=== PATIENT | male | born 1955 | race Caucasian/White ===

== ENCOUNTER 2023-03-03 00:09 | Emergency (ER) | payer MEDICARE ==
[~2023-03-03] VITALS: Ht 182.9 cm; Wt 110.0 kg
[2023-03-03] MEDS ORDERED: LORazepam 2 mg/ml vial IV ONE (01:05)
[2023-03-03] MEDS ORDERED: ketorolac tromethamine 15mg/ml inj. IV ONE (01:05)
[2023-03-03] MEDS ORDERED: morphine 2 MG/ML inj. syringe IV PRN (01:05)
[2023-03-03] MEDS ORDERED: pantoprazole 40 MG vial IV ONE (01:05)
[2023-03-03] MEDS ORDERED: pantoprazole 40MG/NS 100ML BAG 100 ML IV ONE (01:10)
[2023-03-03 01:14] LABS: BASOPHILS % (AUTO) 0.3 % (0-1); EOSINOPHILS # (AUTO) 0.1 X10'3 (0-0.9); EOSINOPHILS % (AUTO) 0.7 % (0-6); HEMOGLOBIN 13.6 g/dl (14.0-17.9); LYMPHOCYTES # (AUTO) 2.1 X10'3 (1.1-4.8); LYMPHOCYTES % (AUTO) 11.8 % (21-51); MEAN CORPUSCULAR HEMOGLOBIN 30.3 PG (27.0-31.0); MEAN PLATELET VOLUME 8.8 FL (7.4-10.4); MONOCYTES # (AUTO) 1.9 X10'3 (0-0.9); MONOCYTES % (AUTO) 10.3 % (2-12); NEUTROPHILS % (AUTO) 76.9 % (42-75); PLATELET COUNT 322 X10'3 (140-440); RED BLOOD COUNT 4.49 X10'6 (4.70-6.10); RED CELL DISTRIBUTION WIDTH 13.6 % (11.5-14.5); WHITE BLOOD COUNT 18.2 X10'3 (4.5-11.0)
[2023-03-03 01:24] LABS: D-DIMER 5.29 MG/L FEU (0-0.50)
[2023-03-03 01:24] LABS: ALANINE AMINOTRANSFERASE 57 U/L (12-78); ALBUMIN/GLOBULIN RATIO 1.2 (1.1-1.5); ALKALINE PHOSPHATASE 154 IU/L (46-116); ANION GAP 8 (8-16); ASPARTATE AMINO TRANSFERASE 28 U/L (10-37); BILIRUBIN,TOTAL 0.8 MG/DL (0.1-1.0); BLOOD UREA NITROGEN 21 MG/DL (7-18); BUN/CREATININE RATIO 19.3 (10.0-20.0); CALCIUM 8.7 MG/DL (8.5-10.1); CHLORIDE 101 MMOL/L (99-107); CREATININE 1.09 MG/DL (0.60-1.10); GLUCOSE 156 MG/DL (70-104); POTASSIUM 4.3 MMOL/L (3.5-5.1); SODIUM 135 MMOL/L (135-145); TOTAL CARBON DIOXIDE 25.8 MMOL/L (24-32); TOTAL PROTEIN 7.4 G/DL (6.4-8.2); eGFR 67 ML/MIN
[2023-03-03 02:00] VITALS: BP 126/83
[2023-03-03] MEDS ORDERED: iohexol 350MG/ML 100ml bottle IV ONE (02:14)
[2023-03-03] MEDS ORDERED: CELE-193 PO (03:16)
== END 2023-03-03 04:59 | disposition home or self-care (01) ==
LOC: ER 00:10
DX: R07.89 Other chest pain (principal); I10 Essential (primary) hypertension
CPT/HCPCS: 36415; 71045; 71275; 80053; 83880; 84484; 85025; 85379; 93005; 96365; 96375; 99285; C9113; J1885; J2060; J2270; J3490; J7030; Q9967